=== PATIENT | female | born 1930 | race Asian ===

== ENCOUNTER 2017-07-29 12:36 | Inpatient (IN) | END 2017-08-02 23:15 | disposition home health service (06) | DRG 304 ==

== ENCOUNTER 2017-10-30 12:44 | Inpatient (IN) | END 2017-11-07 16:10 | disposition home health service (06) | DRG 193 ==

== ENCOUNTER 2017-11-10 14:02 | Inpatient (IN) | END 2017-11-22 | DRG 637 ==

== ENCOUNTER 2017-11-23 12:57 | Inpatient (IN) | END 2017-12-03 15:51 | disposition EXP | DRG 870 ==